=== PATIENT | female | born 1975 | race Two or more races ===

== ENCOUNTER 2024-10-16 14:14 | Emergency (ER) | payer MEDICAID, SELFPAY ==
[2024-10-16 14:15] VITALS: BMI 34.9
--- NOTE | 2024-10-16 14:35 | XR_ITS ---
Examination: PA lateral chest 2 views TECHNIQUE: Upright PA and lateral chest 2 views Exam date and time: October 16, 2024, 1450 hours INDICATIONS: Coughing beginning 2 weeks ago. FINDINGS: Normal heart size. Lungs are clear. The osseous structures are intact. IMPRESSION: No active disease
--- NOTE | 2024-10-16 14:45 | EDNOTE_ITS ---
<Statement entered by Fatimah Alvarez MD - 10/16/24 17:50> As co-signing physician, I was present and available for consult prn. I concur with the plan and care as documented by the midlevel provider. ED General RME/HPI General Chief complaint: Flu Like Symptoms Stated complaint: COUGH X 2 WKS, A LOT OF PHLEGM Time Seen by Provider: 10/16/24 14:34 Arrival date/time: 10/16/24 14:14 CC: Cough and sore throat HPI ongoing for past 2 weeks had initially for 1 week it went away and then came back again . Patient admits to vaping on a regular basis has a wet nonproductive cough. Denies fever shortness of breath or difficulty breathing. No OTC medicines taken Related Data Previous Rx's ?Medication ?Instructions ?Recorded guaifenesin 200 mg/5 mL oral liquid 200 mg (5 mL) PO Q 4H PRN cough 10/16/24 #118 mL Allergies Allergy/AdvReac Type Severity Reaction Status Date / Time erythromycin base Allergy Verified 10/16/24 14:18 Penicillins Allergy Verified 10/16/24 14:18 tramadol Allergy Verified 10/16/24 14:18 Review of Systems Review of Systems Narrative Review of Systems: GEN: No fever, no chills, no weight loss EYES: No discharge, no visual changes, no pain HEENT: No ear pain, no congestion, no sore throat PULM: No shortness of breath, + cough, no congestion CV: No chest pain, no dyspnea on exertion, no palpitations GI: No nausea, no vomiting, no diarrhea, no pain, no constipation : No frequency, no urgency, no dysuria MUSC/SKEL: No joint pain, no back pain SKIN: No rash PSYCH: No hallucinations, no depression HEME/LYMPH: No easy bleeding or bruising tendencies NEURO: No weakness, no headache Past Medical History Social History SMOKING STATUS: Current every day smoker ED Exam Narrative Physical exam: [General: Obese not in any acute distress Head normocephalic HEENT: Within acceptable limits Neck is supple nontender Chest equal chest rise nontender to palpation Respiratory: Clear to auscultation no wheezes crackles or rubs, wet nonproductive cough appreciated. CV: Rate rhythm is regular no murmurs rubs or clicks Abdomen is distended secondary to body habitus soft nontender no masses positive bowel sounds all 4 quadrants Back: No CVA tenderness no spinous process tenderness from cervical spine thoracic and lumbar spine Skin: Intact no petechiae rash induration ulceration or crepitus Extremities: Moving all extremity against resistance cap refill less than 2 seconds neurosensory intact Neuro: Awake alert oriented x3 Glascow coma 15 no focal deficits] Course Quality Measures none Orders Category Date Time Status Bedside Influenza A&B Antigen Test NOW Care 10/16/24 14:35 Active XR chest 2V Stat Exams 10/16/24 14:35 Completed Vital Signs Vital signs: Vital Signs Temperature 98.6 F 10/16/24 14:57 Pulse Rate 74 10/16/24 14:57 Respiratory Rate 18 10/16/24 14:57 Blood Pressure 121/85 H 10/16/24 14:57 Pulse Oximetry (%) 95 10/16/24 14:57 Oxygen Delivery Method Room Air 10/16/24 14:57 MDM Patient data External records reviewed:: [facility] previous records Clinical information provided by:: patient Social determinants that could affect healthcare access:: none Patient has the following chronic illnesses:: Obesity smoker How is presenting disease/condition affected by chronic disease/condition?: uneffected by Evaluation data The following diagnostics were reviewed and interpreted by me:: radiology exam(s) Lab and/or radiology exams considered but not ordered:: Chest x-ray is interpreted by me read by radiology as negative for any acute finding. Interpretation Summary: Cough is most likely viral syndrome. Medications Medications considered but not ordered:: None Medication administrations:: None Consultations Consultation(s) initiated? (list below): No Diagnosis Differential Diagnosis ED Complaint MDM: Cough pneumonia bronchitis Most likely diagnosis given after review of the tests above:: Cough viral syndrome Admission Indicated Admission indicated?: not indicated Explain why admission is indicated or not indicated:: Stable for discharge Admission Request Was there a request for admission?: No Disposition Plan Disposition Plan: Discharge Discharge Attestation Discharge Attestation: The patient and all family members were given an opportunity to ask questions and understood the discharge instructions. Discharge instructions specifically effects, indications for sooner follow up or return to the emergency department, and the expected course of current diagnosis. Patient condition: Stable Medical Decision Making Differential Diagnosis Differential Diagnosis: Cough pneumonia bronchitis Discharge Plan Plan Patient Disposition: HOME (Self Care) Patient condition on transfer: Stable Prescriptions/Referrals Prescriptions/Med Rec: New guaifenesin 200 mg/5 mL liquid 200 mg PO Q4H PRN (Reason: cough) Qty: 118 0RF Referrals: Will Lima MD [Physician] - In 1 week Problem List Clinical Impression: Cough Patient/Caregiver Discharge Instructions Education Materials: ED Cough Chronic Uncertain Cause Adult Additional Instructions: Chest x-ray is negative for any acute finding such as bronchitis or pneumonia. Take cough medicine as needed. Stop vaping. Follow-up with your primary care provider Print Language: Urdu Stand Alone Forms: Gill Award Info., Patient Portal Info Letter, Work/School Release PA/PHP ARCHITECT Supervising Physician PA/PHP ARCHITECT Supervising Physician: Fransico Mckeon ENP
[2024-10-16 14:57] VITALS: BP 121/85; PULSE 74; RESP 18; TEMP 37; O2SAT 95
== END 2024-10-16 16:08 | disposition home or self-care (01) ==
LOC: SERX 16:12
PROVIDERS: Emergency Provider Emergency Medicine
DX: R05.9 Cough, unspecified (principal)
CPT/HCPCS: 71046; 87400; 99283